=== PATIENT | male | born 1990 | race Caucasian/White ===

== ENCOUNTER 2016-04-23 13:21 | Emergency (ER) | payer OTHER ==
[~2016-04-23] VITALS: Ht 182.8 cm; Wt 90.7 kg
[~2016-04-23 13:21] MED LIST: AUGMENTIN 875875 MG PO; MEDROL DOSEPAK4 MG PO; VIBRAMYCIN100 MG PO
[2016-04-23 13:47] VITALS: BP 136/82
[2016-04-23] MEDS ORDERED: Peridex 473 ML473 ML PO (14:25)
[2016-04-23] MEDS ORDERED: PENICILLIN-VK500 MG PO (14:25)
== END 2016-04-23 14:41 | disposition home or self-care (01) ==
LOC: ED 13:21
DX: K08.89 Other specified disorders of teeth and supporting structures (principal); F17.200 Nicotine dependence, unspecified, uncomplicated

== ENCOUNTER 2022-04-06 08:55 | Emergency (ER) | payer OTHER ==
[~2022-04-06] VITALS: Wt 102.1 kg
[~2022-04-06 08:55] MED LIST changes: +PENICILLIN-VK500 MG PO; +Peridex 473 ML473 ML PO
[2022-04-06 09:13] VITALS: BP 120/85
== END 2022-04-06 10:52 | disposition home or self-care (01) ==
LOC: ED 08:55
DX: S29.011A Strain of muscle and tendon of front wall of thorax, initial encounter (principal); V43.92XA Unspecified car occupant injured in collision with other type car in traffic accident, initial encounter; Y93.89 Activity, other specified; Y92.89 Other specified places as the place of occurrence of the external cause; Y99.8 Other external cause status